=== PATIENT | male | born 1985 | race African-American/Black ===

== ENCOUNTER 2023-01-21 10:07 | Emergency (ER) | payer OTHER ==
[~2023-01-21] VITALS: Ht 170.2 cm; Wt 86.4 kg
[2023-01-21] MEDS ORDERED: NS 1,000 ML IV ONE ×2 (11:50→13:10)
[2023-01-21 12:17] LABS: BASO % 0.6 % (0.0-1.0); EOS # 0.1 10^3/uL (0.0-0.5); EOS % 1.3 % (0.0-3.0); HEMATOCRIT 41.8 % (42.0-52.0); HEMOGLOBIN 13.2 g/dl (13.5-17.5); LYMPH # 2.4 10^3/uL (1.5-5.0); LYMPH % 51.7 % (24.0-44.0); MEAN CORPUSCULAR HEMOGLOBIN 28.9 pg (27.0-33.0); MEAN CORPUSCULAR HGB CONC 31.6 g/dl (32.0-36.5); MEAN CORPUSCULAR VOLUME 91.7 fl (80.0-96.0); MONO # 0.4 10^3/uL (0.0-0.8); MONO % 8.2 % (2.0-8.0); NEUTROPHILS # 1.8 10^3/uL (1.5-8.5); PLATELET COUNT, AUTOMATED 216 10^3/uL (150-450); RED BLOOD COUNT 4.56 10^6/uL (4.30-6.10); WHITE BLOOD COUNT 4.7 10^3/uL (4.0-10.0)
[2023-01-21 15:01] VITALS: BP 131/82; TEMP 98.1; O2SAT 99
== END 2023-01-21 15:02 | disposition home or self-care (01) ==
LOC: M ED 10:07
DX: M62.82 Rhabdomyolysis (principal); R25.2 Cramp and spasm

== ENCOUNTER 2023-03-09 14:56 | Emergency (ER) | payer OTHER ==
[~2023-03-09] VITALS: Ht 170.2 cm; Wt 84.4 kg
[2023-03-09 14:57] VITALS: BP 145/74; TEMP 98.4; O2SAT 100
== END 2023-03-09 17:48 | disposition left against medical advice (07) ==
LOC: M ED 14:56
DX: M54.9 Dorsalgia, unspecified (principal); Z53.21 Procedure and treatment not carried out due to patient leaving prior to being seen by health care provider

== ENCOUNTER 2024-04-04 13:49 | Emergency (ER) | payer OTHER ==
[~2024-04-04] VITALS: Ht 167.6 cm; Wt 77.7 kg
[2024-04-04 15:40] VITALS: BP 120/77; TEMP 99.3; O2SAT 100
== END 2024-04-04 15:42 | disposition home or self-care (01) ==
LOC: M ED 13:49
DX: J06.9 Acute upper respiratory infection, unspecified (principal); F17.210 Nicotine dependence, cigarettes, uncomplicated; F10.10 Alcohol abuse, uncomplicated

== ENCOUNTER 2024-04-29 14:00 | Emergency (ER) | payer OTHER ==
[~2024-04-29] VITALS: Ht 170.2 cm; Wt 87.6 kg
[2024-04-29 14:11] VITALS: BP 120/79; TEMP 97.6; O2SAT 98
== END 2024-04-29 15:35 | disposition left against medical advice (07) ==
LOC: M ED 14:00
DX: Z53.21 Procedure and treatment not carried out due to patient leaving prior to being seen by health care provider (principal)

== ENCOUNTER → 2024-08-28 | Outpatient (CLI) | payer OTHER ==
[~2024-08-28] MED LIST: ISOVUE-370 76% 100ML VIAL As Ordered ONE
== END ==
LOC: M RAD 14:14
PROVIDERS: ATTEND Surgery
DX: R10.84 Generalized abdominal pain (principal); K57.30 Diverticulosis of large intestine without perforation or abscess without bleeding
CPT/HCPCS: 74177; Q9967

== ENCOUNTER 2024-10-14 10:11 | Day surgery (SDC) | payer OTHER ==
[~2024-10-14] VITALS: Ht 170.2 cm; Wt 80.3 kg
[2024-10-14] MEDS ORDERED: LIDOCAINE 2% 100MG/5ML SDV (FOR ANES.) As Ordered ONE (10:18)
[2024-10-14] MEDS ORDERED: propofoL 200 MG/20 ML VIAL As Ordered ONE (10:18)
[2024-10-14 12:38] VITALS: TEMP 97.4
[2024-10-14 13:05] VITALS: BP 120/67; O2SAT 99
[2024-10-14] MEDS ORDERED: GLYCOPYRROLATE INJ 0.2 MG/ML 2 ML VIAL As Ordered ONE (14:27)
== END 2024-10-14 13:13 | disposition home or self-care (01) ==
LOC: M OPP 10:11
PROVIDERS: ATTEND Surgery
DX: K31.89 Other diseases of stomach and duodenum (principal); B96.81 Helicobacter pylori [H. pylori] as the cause of diseases classified elsewhere; R10.12 Left upper quadrant pain; G47.30 Sleep apnea, unspecified; F17.210 Nicotine dependence, cigarettes, uncomplicated
CPT/HCPCS: 43239; 45378; 88305; J1596

== ENCOUNTER 2025-03-05 08:12 | Emergency (ER) | payer OTHER ==
[~2025-03-05] VITALS: Ht 170.2 cm; Wt 79.1 kg
[2025-03-05] MEDS: NS (Normal Saline) 0.9% 1,000 ML IV ONE (10:25)
[2025-03-05] MEDS: KETOROLAC 30 MG/ML 1 ML VIAL IV ONE (10:26)
[2025-03-05 10:42] LABS: KETONE, URINE AUTO RFX NEGATIVE (NEGATIVE); LEUKOCYTE ESTERASE UR AUTO RFX NEGATIVE (NEGATIVE); NITRITE, URINE AUTO RFX NEGATIVE (NEGATIVE); RBC, URINE AUTO RFX 0 /HPF (0-3); SQUAM EPITHELIAL CELL UR AURFX 0 /HPF (0-6); WBC, URINE AUTO RFX 0 /HPF (0-3)
[2025-03-05 10:59] LABS: BASO # 0.0 10^3/uL (0.0-0.2); BASO % 1.0 % (0.0-1.0); EOS # 0.1 10^3/uL (0.0-0.5); EOS % 1.7 % (0.0-3.0); LYMPH # 2.4 10^3/uL (1.5-5.0); LYMPH % 60.2 % (24.0-44.0); MONO # 0.4 10^3/uL (0.0-0.8); MONO % 9.0 % (2.0-8.0); NEUTROPHILS # 1.1 10^3/uL (1.5-8.5); NEUTROPHILS % 28.1 % (36.0-66.0); PLATELET COUNT, AUTOMATED 217 10^3/uL (150-450)
[2025-03-05 11:04] LABS: ALT/SGPT 56.0 U/L (7.0-40); AST/SGOT 35.0 U/L (<34); CALCIUM LEVEL 9.6 MG/DL (8.5-10.1); CARBON DIOXIDE LEVEL 28.0 MMOL/L (20-31); CHLORIDE LEVEL 104.0 MMOL/L (98-107); CREATININE FOR GFR 1.33 MG/DL (0.70-1.30); GLOMERULAR FILTRATION RATE 68.9 (>60); POTASSIUM SERUM 4.8 MMOL/L (3.5-5.1); SODIUM LEVEL 140.0 MMOL/L (136-145)
[2025-03-05] MEDS ORDERED: KETO-204 PO (12:49)
[2025-03-05 13:10] VITALS: BP 118/78; TEMP 96.4; O2SAT 99
== END 2025-03-05 13:23 | disposition home or self-care (01) ==
LOC: M ED 08:12
DX: R10.9 Unspecified abdominal pain (principal); Z79.2 Long term (current) use of antibiotics
CPT/HCPCS: 74176; 80048; 80076; 81001; 83690; 85025; 96361; 96374; 99284; J1885